=== PATIENT | female | born 1945 ===

== ENCOUNTER → 2025-03-21 13:18 | Outpatient (REF) | payer MEDICARE, SELFPAY ==
[2025-03-21 15:03] LABS: Blood Urea Nitrogen 20 mg/dl (7-17)
[2025-03-22 15:26] LABS: CEA 6.09 ng/ml
== END ==
LOC: REG 13:18
PROVIDERS: ATTENDING PHYSICIAN Surgery
DX: C19 Malignant neoplasm of rectosigmoid junction (principal)
CPT/HCPCS: 36415; 82378; 82565; 84520

== ENCOUNTER → 2025-03-25 12:35 | Outpatient (REF) | payer MEDICARE, SELFPAY | LOC: LAB 12:35 | PROVIDERS: ATTENDING PHYSICIAN Surgery | DX: D50.9 Iron deficiency anemia, unspecified (principal); D49.0 Neoplasm of unspecified behavior of digestive system; K56.690 Other partial intestinal obstruction; K22.89 Other specified disease of esophagus; K29.70 Gastritis, unspecified, without bleeding | CPT/HCPCS: 88305 ==

== ENCOUNTER → 2025-03-25 15:54 | Outpatient (REF) | payer MEDICARE, SELFPAY | LOC: RAD 15:54 | PROVIDERS: ATTENDING PHYSICIAN Surgery; FAMILY PHYSICIAN Family Medicine | DX: C19 Malignant neoplasm of rectosigmoid junction (principal) | CPT/HCPCS: 71260; 74177; Q9967 ==

== ENCOUNTER → 2025-03-30 13:10 | Outpatient (REF) | payer MEDICARE, SELFPAY | LOC: MRI 3T 13:10 | PROVIDERS: ATTENDING PHYSICIAN Surgery; FAMILY PHYSICIAN Family Medicine | DX: C19 Malignant neoplasm of rectosigmoid junction (principal) | CPT/HCPCS: 72197; A9575 ==

== ENCOUNTER 2025-05-04 11:31 | Inpatient (IN) | payer MEDICARE, SELFPAY ==
[2025-04-05 11:50] LABS: APTT 27.1 Sec (23.4-35.0); INR 0.96; PT 13.1 Sec (11.4-14.6)
[2025-04-05 12:04] LABS: ALT (SGPT) 20 U/L (0-35); AST (SGOT) 20 U/L (14-36); Albumin 4.4 g/dl (3.5-5.0); Alkaline Phosphatase 104 U/L (38-126); Blood Urea Nitrogen 22 mg/dl (7-17); Calcium 9.5 mg/dl (8.4-10.2); Carbon Dioxide 27 mmol/L (22-30); Chloride 104 mmol/L (98-107); Glucose 164 mg/dl (70-99); Potassium 4.4 mmol/L (3.5-5.1); Sodium 138 mmol/L (135-145); Total Protein 6.8 g/dl (6.3-8.2); eGFR > 60.00
[2025-04-05 12:33] LABS: CEA 6.91 ng/ml
[2025-04-05 13:22] LABS: Glycohemoglobin (HgbA1c) 7.0 % (4.0-5.6)
[2025-04-05 14:14] VITALS: BMI 23.6
[2025-04-05 16:57] LABS: Hematocrit 44.4 % (37.0-47.0); Hemoglobin 14.2 g/dL (12.0-16.0); Mean Corp Hgb Conc. 32.0 g/dL (33.0-37.0); Mean Corpuscular Volume 90.4 fL (81.0-99.0); Platelet Count 257 10^3/uL (130-400); Red Cell Dist. Width 13.8 % (11.5-14.5)
--- NOTE | 2025-04-06 14:53 | PTCARENOTE ---
Abnormal ECG done 04/05/[address] Lozano, no further intervention requested.
Awaiting note from PCP office addressing same.
[2025-05-04] VITALS (9 sets, daily range): BP systolic 136–181; BP diastolic 49–78; BMI 23.6
[2025-05-04] MEDS: NORMOSOL-R/PLASMALYTE-A 1000 IV (11:10)
[2025-05-04 11:16] LABS: Glucose - Point of Care 162 mg/dl (70-99)
[2025-05-04] MEDS: TYLENOL 1000 MG PO (11:43)
[2025-05-04 13:18] LABS: Glucose - Point of Care 135 mg/dl (70-99)
[2025-05-04] MEDS: HEPARIN 5000 UNITS SC (15:33)
[2025-05-04 16:07] LABS: Glucose - Point of Care 131 mg/dl (70-99)
[2025-05-04 18:12] LABS: Glucose - Point of Care 149 mg/dl (70-99)
--- NOTE | 2025-05-04 21:19 | W.OR.COLCA ---
Colon Cancer Post Op Note
Immediate Post Op
Primary Surgeon: Justin Victor MD
Public Relations Director: WILFREDO Luciano and TAYLOR Topete
Pre-op Diagnosis: Rectosigmoid cancer
Post-op Diagnosis: Same
Procedure Performed: Robotic low anterior resection with intracorporeal anastomosis
Anesthesia Type: GET
Specimen / Cultures: Rectosigmoid (suture is proximal)
Distal donut
Estimated Blood Loss: 20cc
Complications: None
Operative Findings: No evidence of metastatic disease
Bulky tumor at the rectosigmoid junction (intraperitoneal)
Left ovarian cyst
28mm EEA
Normal leak test
Patient's significant other Hussain updated via telephone
Colon Resection
Colon Resection
Operation performed with curative intent: Yes
Tumor Location: Rectosigmoid Junction
Sigmoid Resection: Inferior Mesenteric (Low anterior resection)
[2025-05-04 21:20] LABS: Glucose - Point of Care 272 mg/dl (70-99)
[2025-05-04] MEDS: NOVOLOG vial 4 UNITS SC (21:27)
[2025-05-04] MEDS: ZYRTEC PO (23:05)
[2025-05-04] MEDS: ZOLOFT PO (23:05)
--- NOTE | 2025-05-04 23:08 | W.PN.UPDATE ---
Update Note
Progress Note Update
cbc stat,
hypothermic
[2025-05-04] MEDS: TYLENOL PO (23:30)
[2025-05-04 23:56] LABS: Hematocrit 38.2 % (37.0-47.0); Hemoglobin 12.5 g/dL (12.0-16.0); Mean Corp Hgb Conc. 32.7 g/dL (33.0-37.0); Mean Corpuscular Volume 86.0 fL (81.0-99.0); Platelet Count 221 10^3/uL (130-400); Red Cell Dist. Width 13.2 % (11.5-14.5)
[2025-05-05] VITALS (8 sets, daily range): BP systolic 119–157; BP diastolic 55–88; PULSE 67; BMI 24.1
[2025-05-05] MEDS: NORMOSOL-R/PLASMALYTE-A 1000 IV ×3 (00:02→17:23)
[2025-05-05] MEDS: TORADOL 15 MG IV ×5 (00:03→22:35)
--- NOTE | 2025-05-05 01:12 | PTCARENOTE ---
Pt. received to 2S from PACU @2225 via bed and surgical incisions assessed with off-going PACU nurse. Pt. extremely lethargic but will arouse to persistent verbal and tactile stimulation. Occasionally able to answer simple 'yes/no' questions but
mainly questioning if her surgery is finished then falling asleep shortly after. Vital signs taken upon arrival to floor and unable to obtain an axillary temp >94.4. Pt. unable to tolerate oral temp at that time and on-call colorectal provider
advised against a rectal temp d/t nature of her surgery. House [employer] STILL OPERATOR contacted and external rewarming initiated via Faustino Hugger. Achieved goal temp of 97.0 after 2 hours and therapy d/c. At time of writing VSS, indwelling urinary catheter draining
clear yellow urine, 96% o2 saturation on 1L NC, prescribed fluids infusing. Side rails in place, bed locked and in lowest position, call light within reach.
--- NOTE | 2025-05-05 01:38 | CON.HOSP ---
Consultation
-
Date/Time Consultation Requested: 05/04/25 21:20
Date/Time Consultation Performed: 05/05/25 01:30
Requesting Provider: Dr. Victor
Performing Provider: Dr. Bauer
Reason for Consultation: Med Management
Family Physician
-
Family Physician: Jairo Figueroa MD
Chief Complaint
-
Colon Cancer
History of Present Illness
Patient is an 79y F with PMH significant for hypertension and DM-II who presented to for scheduled robotic low anterior resection for colon mass suspicious for malignancy. Patient underwent surgery and was seen and examined on [facility] post-op.
She is sleeping comfortably. She wakes easily and has no complaints other than expected post-op abdominal discomfort. No chest pain. No SOB. No N/V.
Patient has no personal history of heart disease / stroke.
Medical History
Past Medical History
Additional Past Medical History:
Hypertension
DM-II
Anxiety / Depression
Hypothyroidism
Additional Past Surgical History:
DOMINIQUE
Appendectomy
Cholecystectomy
Social History
Tobacco: Smoker (Current every day smoker. > 50 pack years total use.)
Alcohol: None
Drug: None
Family History
Family History: Reviewed & Not Pertinent
Allergies / Home Medications
Allergies reflects when Allergies were last updated in [employer].
Home Medications with original date entered in [employer]
Allergy/Medication List:
Allergies
Allergy/AdvReac Type Severity Reaction Status Date / Time
codeine Allergy Syncopy Verified 05/04/25 11:26
Iodinated Contrast Media Allergy Severe Verified 05/04/25 11:26
Diarrhea
Home Medications
atorvastatin 20 mg tablet (Lipitor) 20 mg PO DAILY 03/31/25
empagliflozin 10 mg-metformin ER 1,000 mg tablet,extended release 24hr (Synjardy XR) 1 tab PO DAILY 03/31/25
ipratropium bromide 21 mcg (0.03 %) nasal spray 2 spray intranasal TID 03/31/25
levocetirizine 5 mg tablet (Xyzal) 5 mg PO HS 03/31/25
levothyroxine 88 mcg tablet (Synthroid) 88 mcg PO DAILY 03/31/25
losartan 50 mg tablet 50 mg PO DAILY 03/31/25
metronidazole 500 mg tablet 500 mg PO DIRECTED 03/31/25
neomycin 500 mg tablet 1 g PO DIRECTED 03/31/25
pregabalin 50 mg capsule (Lyrica) 50 mg PO BID 03/31/25
sertraline 50 mg tablet (Zoloft) 25 mg PO HS 03/31/25
sertraline 50 mg tablet (Zoloft) 50 mg PO DAILY 03/31/25
sodium sul 1.479 gram-potas ch 0.188 gram-magnes sul 0.225 gram tablet (Sutab) 0 tab PO PER PKG DIR 03/31/25
Review of Systems
-
History Source: Patient
A 12 point Review of Systems was completed except as noted: Yes
Constitutional: Denies Fever or Chills
Respiratory: Denies Cough or Trouble Breathing
Cardiac: Denies Chest Pain or Palpitations
Abdomen/GI: Reports Abdominal Pain; Denies Nausea or Vomiting
Neurological: Denies Dizzy or Headache
Physical Exam
Vital Signs
Vital Signs
Temp Pulse Resp BP Pulse Ox
97.4 F 74 13 152/62 96
05/05/25 01:30 05/05/25 01:30 05/05/25 01:30 05/05/25 01:30 05/05/25 01:30
Physical Exam
General: Other (79y F in no acute distress. Sleeping comfortably until awakened.)
HEENT: Moist Mucous Membranes
Respiratory: Other (Decreased at bases - otherwise clear.)
Cardiac: S1/S2 and Regular Rhythm; Negative Murmur
GI: Other (Abdomen is soft, appropriately tender. Surgical sites intact without gross bleeding.)
Musculoskeletal: No Clubbing, No Cyanosis and No Edema
Laboratory Results
-
PT 13.1 Sec (11.4-14.6) 04/05/25 08:31
INR 0.96 04/05/25 08:31
APTT 27.1 Sec (23.4-35.0) 04/05/25 08:31
Total Bilirubin 0.9 mg/dl (0.2-1.3) 04/05/25 08:31
AST 20 U/L (14-36) 04/05/25 08:31
ALT 20 U/L (0-35) 04/05/25 08:31
Alkaline Phosphatase 104 U/L (38-126) 04/05/25 08:31
Impression / Plan
-
A/R: Patient is an 79y F with PMH significant for hypertension and DM-II who presents to for scheduled robotic low anterior resection. Medical service consulted post-op for management of medical issues.
Colon Cancer
- s/p robotic low anterior resection with primary anastomosis on 05/04/25.
- Tolerated surgery well.
- Routine post-op care per Colorectal Surgery.
- Follow-up final pathology results.
Benign Hypertension
- Stable. Continue losartan with holding parameters.
DM-II
- Stable. Hold Synjardy acutely.
- Follow glucose and cover with SSI if needed.
- A1C prior to admission / surgery was 7%.
Hypothyroidism
- Stable. Continue T4 supplementation.
Anxiety / Depression
- Stable. Continue sertraline.
Tobacco Use Disorder
- Encourage smoking cessation.
- Nicotine replacement if patient requests.
DVT Prophylaxis: SCDs
Code Status: Full
Thank you for this consultation. We will follow along with you during patient's hospital stay.
[2025-05-05] MEDS: TYLENOL 650 MG PO ×5 (02:14→20:34)
[2025-05-05] MEDS: SYNTHROID 88 MCG PO (05:09)
[2025-05-05] MEDS: LIPITOR 20 MG PO (07:35)
[2025-05-05] MEDS: ZOLOFT 50 MG PO (07:35)
[2025-05-05] MEDS: LYRICA 50 MG PO ×2 (07:35→20:34)
[2025-05-05] MEDS: COZAAR 50 MG PO (07:35)
[2025-05-05] MEDS: ROXICODONE 5 MG PO (08:05)
[2025-05-05 08:19] LABS: Hematocrit 35.0 % (37.0-47.0); Hemoglobin 11.5 g/dL (12.0-16.0); Mean Corp Hgb Conc. 32.9 g/dL (33.0-37.0); Mean Corpuscular Volume 87.5 fL (81.0-99.0); Nucleated Red Blood Cells % 0 %; Platelet Count 231 10^3/uL (130-400); Red Cell Dist. Width 13.2 % (11.5-14.5)
[2025-05-05 08:31] LABS: Blood Urea Nitrogen 14 mg/dl (7-17); Calcium 8.6 mg/dl (8.4-10.2); Carbon Dioxide 25 mmol/L (22-30); Chloride 106 mmol/L (98-107); Estimated Creatinine Clearance 53 ml/min; Glucose 179 mg/dl (70-99); Potassium 3.9 mmol/L (3.5-5.1); Sodium 135 mmol/L (135-145); eGFR > 60.00
[2025-05-05 09:16] LABS: Glucose - Point of Care 174 mg/dl (70-99)
--- NOTE | 2025-05-05 10:00 | CM ---
CM following re: discharge planning.
Reviewed pt's chart, met with pt.
Pt is an 79 year old very [place] female, admitted with primary dx of Rectosigmoid cancer, POD#1 s/p Robotic low anterior resection with intracorporeal anastomosis.
Pt reports she lives alone in a condo 1st floor, no steps, has an elevator. Pt reports she does not have children, has supportive SO [employer], supportive neighbors and they are nurses. Pt reports she ambulates with a cane and a walker. Pt
expressed her fears that 'protective services case worker or renal social worker usually assigned to get to a shelter and i am making very clear I am not going to a shelter'. Emotional support and reassurance regarding protective services case worker/social worked job provided and
pt expressed her understanding. Pt stated again: 'we will remain friends if you are not planning any shelter placement'. Emotional support offered and provided again
PCP: Jairo Figueroa
Pharmacy: [facility]
D/C plan: home with anticipated no needs vs VN if indicated.
CM will follow with discharge plan updates as hospitalization progresses
[2025-05-05] MEDS: NOVOLOG FLEXPEN-LOW RESISTANCE 1 UNITS SC (10:06)
--- NOTE | 2025-05-05 11:31 | W.PN.CRS1 ---
Today's Communication / Plan
-
as below
Assessment/Plan
-
79-year-old female with PMH of DM, HTN, depression/anxiety and hypothyroidism who presented for elective surgery
POD 1 robotic LAR for rectosigmoid cancer
AFVSS
WBC 8.8 from 11.9, Hb 11.5 from 12.2, CR 0.7
�Will advance to fulls for lunch, likely low residue for dinner
� Continue pain control with Tylenol, Toradol, oxycodone and Dilaudid as needed; continue pregabalin as home medication
� Will DC Rodriguez, monitor for void
� Will start DVT PPx with Lovenox
� Encourage IS/OOB
� Appreciate hospitalist consult for diabetes management
Subjective Data
Subjective Data
Date of Service: May 05, 2025
No overnight events.
Pain controlled.
Denies nausea/vomiting. Tolerating diet.
+flatus -BMs +rodriguez
Pt is OOB.
Objective Data
-
Vital Signs
Temp Pulse Resp BP Pulse Ox
98.3 F 77 16 147/68 94
05/05/25 07:25 05/05/25 07:25 05/05/25 07:25 05/05/25 07:25 05/05/25 07:25
Intake & Output
05/04/25 05/05/25 05/06/25
06:59 06:59 06:59
Intake Total 580 / 580
Output Total 1380 / 1380
Balance -800 / -800
Intake:
Oral fluids 480 / 480
IV fluids (Total) 100 / 100
normosol 100 / 100
Output:
Urine, Rodriguez 1380 / 1380
Lab Results
05/05/25 07:39
05/05/25 07:39
Physical Exam
-
General: No Acute Distress, AOx3 and Other ([id number])
HEENT: Grossly Normal
Abdomen: Soft, Distended (Mildly distended, not tympanitic), Tender (Appropriately tender near incisions), No Guarding and No Rebound
Skin: Warm and Dry
Wound: No Signs of Infection, No Skin Erythema and Other (Incisions well-approximated without erythema or drainage, covered in Dermabond)
--- NOTE | 2025-05-05 12:29 | W.PN.HOSP.TC ---
Today's Communication/Plan
-
Postoperative care
Diet has been advanced
Continue blood glucose monitoring holding oral hypoglycemics until tolerates diet.
Assessment / Plan
Assessment / Plan
A/R: Patient is an 79y F with PMH significant for hypertension and DM-II who presents to for scheduled robotic low anterior resection. Medical service consulted post-op for management of medical issues.
Colon Cancer
- s/p robotic low anterior resection with primary anastomosis on 05/04/25.
- Tolerated surgery well.
Doing well postoperatively with minimal pain in the surgical site
Diet has been advanced as per surgery
Mccray removed
PT assessment
Benign Hypertension
- Stable. Continue losartan with holding parameters.
DM-II
- Stable. Hold Synjardy acutely.
- Follow glucose and cover with SSI if needed.
- Hemoglobin A1c 7.0
- Diet being advanced to full liquids and hopefully to solids by dinner tonight. Will continue basal bolus protocol with serial Accu-Cheks with plan to resume oral hypoglycemic medications on 05/06 once tolerate diet.
Hypothyroidism
- Stable. Continue T4 supplementation.
Anxiety / Depression
- Stable. Continue sertraline.
Tobacco Use Disorder
- Encourage smoking cessation.
- Nicotine replacement if patient requests.
DVT Prophylaxis: SCDs
Code Status: Full
Anticipated Discharge: 24 - 48 hours
Subjective/Interval History
-
Date of Service: May 05, 2025
Objective Data
-
Labs:
Laboratory Results
05/05/25
07:39
WBC 8.8
Hgb 11.5 L
Hct 35.0 L
Plt Count 231
Sodium 135
Potassium 3.9
Chloride 106
Carbon Dioxide 25
BUN 14
Creatinine 0.7
Glucose 179 H
Calcium 8.6
Vital Signs:
Vital Signs
Temp Pulse Resp BP Pulse Ox
98.3 F 77 16 147/68 94
05/05/25 07:25 05/05/25 07:25 05/05/25 07:25 05/05/25 07:25 05/05/25 07:25
I&O
05/04/25 05/05/25 05/06/25
06:59 06:59 06:59
Intake Total 580 / 580 480 / 480
Output Total 1380 / 1380
Balance -800 / -800 480 / 480
Physical Exam
-
General: Well Developed and No Apparent Distress
HEENT: Normocephalic, Atraumatic and Moist Mucous Membranes
Respiratory: Clear to Auscultation
Cardiac: Regular Rhythm and S1/S2; Negative Murmur, Rub or Gallop
GI: Soft, Nontender, Nondistended and Normal Bowel Sounds; Negative Organomegaly
Rectal: Deferred by Provider
Musculoskeletal: No Clubbing, No Cyanosis and No Edema
Skin: Negative Rash
Neuro: Nonfocal/Grossly Intact
[2025-05-05 12:43] LABS: Glucose - Point of Care 213 mg/dl (70-99)
[2025-05-05] MEDS: NOVOLOG FLEXPEN-LOW RESISTANCE 2 UNITS SC (12:43)
--- NOTE | 2025-05-05 14:50 | PTCARENOTE ---
Patient rodriguez removed at 1450.
[2025-05-05 16:41] LABS: Glucose - Point of Care 123 mg/dl (70-99)
[2025-05-05] MEDS: LOVENOX 40 MG SC (17:22)
[2025-05-05] MEDS: NOVOLOG FLEXPEN-LOW RESISTANCE SC (17:22)
[2025-05-05] MEDS: ZYRTEC 5 MG PO (20:35)
[2025-05-05] MEDS: ZOLOFT 25 MG PO (20:35)
[2025-05-05 21:27] LABS: Glucose - Point of Care 205 mg/dl (70-99)
[2025-05-06] MEDS: TYLENOL PO (01:10)
[2025-05-06] MEDS: NORMOSOL-R/PLASMALYTE-A 1000 IV (04:16)
[2025-05-06] MEDS: TORADOL 15 MG IV (04:20)
[2025-05-06] MEDS: TYLENOL 650 MG PO ×2 (04:23→08:40)
[2025-05-06 06:00] VITALS: BMI 24.7
[2025-05-06] MEDS: SYNTHROID 88 MCG PO (06:38)
[2025-05-06 07:30] VITALS: BP 135/69
[2025-05-06 07:33] LABS: Glucose - Point of Care 159 mg/dl (70-99)
[2025-05-06] MEDS: COZAAR 50 MG PO (08:38)
[2025-05-06] MEDS: NOVOLOG FLEXPEN-LOW RESISTANCE 1 UNITS SC (08:38)
[2025-05-06] MEDS: LYRICA 50 MG PO (08:39)
[2025-05-06] MEDS: ZOLOFT 50 MG PO (08:40)
[2025-05-06] MEDS: LIPITOR 20 MG PO (08:40)
--- NOTE | 2025-05-06 09:19 | W.PN.CRS1 ---
Today's Communication / Plan
-
discharge
Assessment/Plan
-
79-year-old female with PMH of DM, HTN, depression/anxiety and hypothyroidism who presented for elective surgery
POD 2 robotic LAR for rectosigmoid cancer
AFVSS
no labs
� Tolerating a low residue diet
� Continue pain control with Tylenol, Toradol, oxycodone and Dilaudid as needed; continue pregabalin as home medication
� Voiding post rodriguez removal
� DVT PPx with Lovenox
� Encourage IS/OOB
� Appreciate hospitalist consult for diabetes management
- OKay for dc today. All discharge instructions discussed with patient including medications, activity levels, and follow up. All questions addressed. Will discharge on eliquis 2.5mg po BID for 1 month for dvt prophylaxis.
Subjective Data
Subjective Data
Date of Service: May 06, 2025
Patient states she is feeling okay. Her pain is controlled. She has no nausea or vomiting. Tolerating a diet.
Objective Data
-
Vital Signs
Temp Pulse Resp BP Pulse Ox
98.3 F 77 18 135/69 94
05/06/25 07:30 05/06/25 08:38 05/06/25 07:30 05/06/25 08:38 05/06/25 07:30
Intake & Output
05/05/25 05/06/25 05/07/25
06:59 06:59 06:59
Intake Total 580 / 580 2500 / 2500
Output Total 1380 / 1380 1000 / 1000
Balance -800 / -800 1500 / 1500
Intake:
Oral fluids 480 / 480 1500 / 1500
IV fluids (Total) 100 / 100 1000 / 1000
normosol 100 / 100
Output:
Urine, Rodriguez 1380 / 1380 1000 / 1000
Other:
Number of approximated MODERATE 3
amounts of urine
Lab Results
05/05/25 07:39
05/05/25 07:39
Physical Exam
-
General: No Acute Distress and AOx3
Abdomen: Soft, Non Distended and Non Tender
Skin: Warm and Dry
Incision: Clear, Dry, Intact
--- NOTE | 2025-05-06 09:26 | CM ---
CM following re: discharge planning.
Reviewed pt's chart, met with pt.
Pt is POD 1 robotic LAR for rectosigmoid cancer. continue supportive care.
PT and OT evaluation noted - home PT vs no need recommended. Pt is aware and she expressed her desire to have VN services upon the discharge 'to make sure it covers by insurance'. Pt is assured there is no out of pocket cost. VN choices given, pt
preferred [facility]. A referral to [facility] made.
Per MD pt will need Eliquis only for 30 days. Free 30 day coupon trial provided to the pt.
Pt stated she was told by she will be discharged home today and she already called her SO to come to transport home.
IMM reviewed, placed on chart, pt has a copy.
Please fax discharge instructions to [facility] at [phone]
D/C plan: home with [facility] and SO support. SO to transport.
[2025-05-06] MEDS: TORADOL IV (10:15)
[2025-05-06 11:00] VITALS: BP 131/61
== END 2025-05-06 11:53 | disposition home health service (06) | DRG 330 ==
LOC: 2 SOUTH 11:31
PROVIDERS: Nurse Practitioner Family; ADMITTING PHYSICIAN Surgery; FAMILY PHYSICIAN Family Medicine; OTHER PHYSICIAN Hospitalist
PROC: 0DBN4ZZ Excision of Sigmoid Colon, Percutaneous Endoscopic Approach (ICD-10-PCS; 2025-05-04)
PROC: 0DJD8ZZ Inspection of Lower Intestinal Tract, Via Natural or Artificial Opening Endoscopic (ICD-10-PCS; 2025-05-04)
PROC: 8E0W4CZ Robotic Assisted Procedure of Trunk Region, Percutaneous Endoscopic Approach (ICD-10-PCS; 2025-05-04)
DX: C19 Malignant neoplasm of rectosigmoid junction (principal); Q43.8 Other specified congenital malformations of intestine; E03.9 Hypothyroidism, unspecified; E11.9 Type 2 diabetes mellitus without complications; F32.A Depression, unspecified; F41.9 Anxiety disorder, unspecified; I10 Essential (primary) hypertension; K59.09 Other constipation; K66.0 Peritoneal adhesions (postprocedural) (postinfection); M17.0 Bilateral primary osteoarthritis of knee; F17.210 Nicotine dependence, cigarettes, uncomplicated; E78.00 Pure hypercholesterolemia, unspecified; N83.202 Unspecified ovarian cyst, left side; Z79.890 Hormone replacement therapy; Z79.84 Long term (current) use of oral hypoglycemic drugs; Z79.899 Other long term (current) drug therapy; Z88.5 Allergy status to narcotic agent; Z91.041 Radiographic dye allergy status
CPT/HCPCS: 36415; 80048; 80053; 82378; 82962; 83036; 85025; 85027; 85610; 85730; 86850; 86900; 86901; 88304; 88309; 93005; 97162; J1335